=== PATIENT | male | born 1965 | race Caucasian/White ===

== ENCOUNTER → 2019-08-16 09:08 | Outpatient (BNVA) | payer OTHER, SELFPAY | PROVIDERS: Family Provider Nurse Practitioner; PCP Nurse Practitioner; Visit Provider Nurse Practitioner Family | DX: I10 Essential (primary) hypertension (principal); E78.2 Mixed hyperlipidemia; M1A.9XX0 Chronic gout, unspecified, without tophus (tophi); R19.00 Intra-abdominal and pelvic swelling, mass and lump, unspecified site; R14.0 Abdominal distension (gaseous); R10.32 Left lower quadrant pain | CPT/HCPCS: 80053; 80061; 85025 ==

== ENCOUNTER 2019-08-31 07:34 | Outpatient (CLI) | payer OTHER, SELFPAY ==
--- NOTE | 2019-08-31 08:00 | US_ITS ---
WS: [id number] ABDOMINAL ULTRASOUND REASON FOR EXAM: abdominal pain, abdominal bulge, left groin pain TECHNIQUE: Grayscale and Doppler ultrasound examination of the abdomen. FINDINGS: Pancreas: Not well seen due to overriding gas. Abdominal aorta and IVC: Within normal limits. Liver: Liver measures 17.9 cm in length.Fatty infiltration of the liver. Hepatopedal circulation port al system. Gallbladder: Gallbladder wall thickness not measured..Stone measures 1.05 x 0.67 cm. Common bile duct measured 0.27 cm. Left kidney: Left kidney measures 12.1 cm x 5.3 cm x 5.3 cm. Left kidney cortex measures 1.8 cm. No h ydronephrosis or stones. Right kidney: Right kidney measures 11.7 cm x 5.5 cm x 6.4 cm. Right kidney cortex measures 1.6 cm. N o hydronephrosis or stones. Spleen: Spleen measures 11.5 cm x 4.7 cm x 4.2 cm. US/US abdomen complete* [id number] IMPRESSION: Cholelithiasis. Fatty infiltration of the liver.
--- NOTE | 2019-08-31 08:45 | US_ITS ---
WS: [id number] US soft tissue/extremity [id number] REASON FOR EXAM: left groin pain FINDINGS: Real-time imaging of the left groin area at the patient's direction showed no evidence of i nguinal hernias, no lymph nodes, no other masses. US/US soft tissue/extremity [id number] IMPRESSION: Negative left groin area for lesions.
== END 2019-08-31 07:35 | disposition home or self-care (01) ==
LOC: US 07:38
PROVIDERS: Family Provider Nurse Practitioner; PCP Nurse Practitioner; Visit Provider Nurse Practitioner Family
DX: K80.20 Calculus of gallbladder without cholecystitis without obstruction (principal); K76.0 Fatty (change of) liver, not elsewhere classified; R10.9 Unspecified abdominal pain; R19.00 Intra-abdominal and pelvic swelling, mass and lump, unspecified site; R10.32 Left lower quadrant pain
CPT/HCPCS: 76700; 76882